=== PATIENT | female | born 1965 | race Caucasian/White ===

== ENCOUNTER 2022-12-24 14:53 | Outpatient (CLI) | payer BC | END 2022-12-24 14:54 | disposition home or self-care (01) | LOC: CSHMAMMO 14:53 | PROVIDERS: ATTEND Physician Assistant | DX: Z12.31 Encounter for screening mammogram for malignant neoplasm of breast (principal) | CPT/HCPCS: 77063; 77067 ==

== ENCOUNTER 2024-01-28 11:18 | Outpatient (CLI) | payer BC | END 2024-01-28 11:19 | disposition home or self-care (01) | LOC: CSHMAMMO 11:18 | PROVIDERS: ATTEND Physician Assistant | DX: Z12.31 Encounter for screening mammogram for malignant neoplasm of breast (principal) | CPT/HCPCS: 77063; 77067 ==